=== PATIENT | female | born 1980 | race Caucasian/White ===

== ENCOUNTER → 2018-11-03 | Outpatient (CLI) | payer OTHER ==
[~2018-11-03] MED LIST: ABAT250V; IBUP800 PO; Synthroid/Lev0.15 MG PO; VITAMIN D5000 UNI1 PO; Verotin-Gr Cap1 EACH PO
== END | disposition home or self-care (01) ==
LOC: LAB 11:42 → LAB SHORT 11:42
DX: E03.9 Hypothyroidism, unspecified (principal)
CPT/HCPCS: 84443

== ENCOUNTER 2023-07-15 10:17 | Day surgery (SDC) | payer OTHER ==
[2023-07-15] VITALS (14 sets, daily range): BP systolic 128–153; BP diastolic 82–100
[~2023-07-15] VITALS: Ht 160 cm; Wt 113.2 kg
--- NOTE | 2023-07-15 10:52 | NUR ---
Ambulatory in Day Surgery History, Chart, Medications and Allergies reviewed before start of procedure. Pre-Op teaching done. Pt verbalizes understanding. Patient States Post-Procedure ride home has been arranged.
--- NOTE | 2023-07-15 14:14 | NUR ---
RECENTLY ASSUMED CARE OF PT. PT SITES TO ABD C/D/I. PT ASSISTED WITH ADL'S PRN. PT DECLINES WATER AT THIS TIME. REPORTS NAUSEA GETTING A LITTLE BETTER. PT AWAKE AND ORIENTED.
--- NOTE | 2023-07-15 16:32 | NUR ---
PT REPORTS NAUSEA BETTER. REPORTS READY TO GO HOME. PT HAS DRAINAGE ON NURY PAD WNL. INCISIONS C/D/I. PT FAMILY STILL AT BEDSIDE. Discharge instructions reviewed with patient. Patient verbalizes understanding. Copy given to patient to take home, WELL FAMILY. Patient States Post-Procedure ride home has been arranged. Discharged via wheelchair to private car for ride home. PT REPORTS PAIN TOLERABLE 2/10.
== END 2023-07-15 16:32 | disposition home or self-care (01) ==
LOC: ORSCMMR 10:17 → ORD 11:30 → ORSCMMR 11:30
PROVIDERS: Obstetrics & Gynecology
PROC: 0UT74ZZ Resection of Bilateral Fallopian Tubes, Percutaneous Endoscopic Approach (ICD-10-PCS; principal; 2023-07-15 11:30)
PROC: 0U5B8ZZ Destruction of Endometrium, Via Natural or Artificial Opening Endoscopic (ICD-10-PCS; principal; 2023-07-15 11:30)
DX: Z30.2 Encounter for sterilization (principal); N92.0 Excessive and frequent menstruation with regular cycle; N94.6 Dysmenorrhea, unspecified; N80.329 Endometriosis of the posterior cul-de-sac, unspecified depth; N80.359 Endometriosis of pelvic sidewall, unspecified side, unspecified depth; E66.01 Morbid (severe) obesity due to excess calories; Z68.41 Body mass index [BMI] 40.0-44.9, adult; E03.9 Hypothyroidism, unspecified; Z79.899 Other long term (current) drug therapy
CPT/HCPCS: 88302; 88305; J0330; J0690; J1100; J1170; J1885; J2405; J2704; J3010; J7120

== ENCOUNTER → 2025-06-27 | Outpatient (CLI) | payer OTHER ==
[2025-06-27 15:13] LABS: Bacterial Vaginosis PCR Negative (NEGATIVE); Candida glabrata-krusei, PCR NOT DETECTED (NOT DETECT)
[2025-06-27 15:49] LABS: Candida Group, PCR DETECTED (NOT DETECT)
== END | disposition home or self-care (01) ==
LOC: LAB SHORT 12:11 → LAB 12:11
PROVIDERS: Family Medicine
DX: Z01.419 Encounter for gynecological examination (general) (routine) without abnormal findings (principal); N89.8 Other specified noninflammatory disorders of vagina; Z80.3 Family history of malignant neoplasm of breast
CPT/HCPCS: 36415; 81515; 87624; G0145